=== PATIENT | male | born 1950 | race Caucasian/White ===

== ENCOUNTER → 2017-08-28 | Outpatient (CLI) | payer OTHER | LOC: FIMAGING 09:22 | PROVIDERS: ATTEND Orthopaedic Surgery | DX: M17.11 Unilateral primary osteoarthritis, right knee (principal) ==

== ENCOUNTER 2017-09-16 08:38 | Inpatient (IN) | payer OTHER ==
[~2017-09-16 08:38] MED LIST: ROPIVACAINE 0.2% 80 MG, EPINEPHrine 0.2 MG, KETOROLAC TROMETHAMINE 30 MG in BAG 0 ML IU ONE; TRANEXAMIC ACID 3,000 MG in NS 50 ML IRR ONE; TRANEXAMIC ACID 3,000 MG/50 ML BAG IRR ONE; VANCOMYCIN 1 GM VIAL ONE
[2017-09-16] MEDS ORDERED: FAMOTIDINE 20 MG TAB PO ONE (09:02)
[2017-09-16] MEDS ORDERED: ceFAZolin 2 GM/DEXTROSE 100 ML IV ONE (09:02)
[2017-09-16] MEDS ORDERED: ACETAMINOPHEN 325 MG TAB PO ONE (09:02)
[2017-09-16] MEDS ORDERED: DEXAMETHASONE 4 MG/ML VIAL IVP ONE (09:02)
[2017-09-16] MEDS ORDERED: LIDOCAINE 1% 2 ML INJ ID PRN (09:14)
[2017-09-16] MEDS ORDERED: LR 1,000 ML IV ONE (09:14)
--- NOTE | 2017-09-16 09:27 | PDHPUP ---
History & Physical Update H&P update statement: This history and physical update is based on an assessment of the patient which was completed after admission or registration (within 24 hours), but prior to the surgery/procedure. H&P update: H&P reviewed & patient examined, no change in patient's condition since H&P completed
[2017-09-16] MEDS ORDERED: MIDAZOLAM 2 MG/2 ML VIAL ONE (11:12)
--- NOTE | 2017-09-16 11:12 | PDANEPAE ---
ANE History of Present Illness Knee OA ANE Past Medical History - Cardiovascular History Hx Hypertension: Yes Hx Arrhythmias: No Hx Chest Pain: No Hx Coronary Artery / Peripheral Vascular Disease: No Hx CHF / Valvular Disease: No Hx Palpitations: No Cardiovascular History Comment: well managed on Losartan - Pulmonary History Hx COPD: No Hx Asthma/Reactive Airway Disease: No Hx Recent Upper Respiratory Infection: No Hx Oxygen in Use at Home: No Hx Sleep Apnea: No Sleep Apnea Screening Result - Last Documented: Negative - Neurologic History Hx Cerebrovascular Accident: No Hx Seizures: No Hx Dementia: No - Endocrine History Hx Diabetes: No - Renal History Hx Renal Disorders: Yes Renal History Comment: BPH managed w/Rx - Liver History Hx Hepatic Disorders: No - Neurological & Psychiatric Hx Hx Neurological and Psychiatric Disorders: No - Cancer History Hx Cancer: No - Congenital Disorder History Hx Congenital Disorders: No - GI History Hx Gastrointestinal Disorders: No - Other Health History Other Health History: OA R knee. "bleeding issue" w/L total knee Dec 2016-Dr Gwen Odell F/U 5-50-[id number] was written. - Chronic Pain History Chronic Pain: No - Surgical History Prior Surgeries: L total knee Dec. tonsillectomy age 2 ANE Review of Systems Review of Systems: - Exercise capacity METS (RN): 4 METS ANE Patient History - Allergies Allergies/Adverse Reactions: No Known Allergies Allergy (Verified 08/14/17 15:48) - Home Medications Home medications: home medication list seen and reviewed Home Medications: Aspirin [Aspirin 81mg (*)] 81 mg PO DAILY 08/12/17 [Last Taken 08/30/17] C/E/Zn/Cu/OM3/DHA/EPA/LUT/ZEAX [Preservision Areds 2 Softgel] 1 each PO BID [Last Taken 08/30/17] Cyanocobalamin [Vitamin B12 (*)] 1,000 mcg PO DAILY 08/12/17 [Last Taken ] Finasteride [Proscar 5 MG (*)] 5 mg PO DAILY 08/12/17 [Last Taken 09/16/17 05:30 ] Herbals/Supplements -Info Only 1 ea PO DAILY 08/12/17 [Last Taken 08/30/17] Losartan Potassium [Cozaar 50 mg (*)] 50 mg PO BID 08/12/17 [Last Taken 05:30] Hensel-3 Fatty Acids [Fish Oil 1000 mg (*)] 1,000 mg PO BID 08/12/17 [Last Taken 08/30/17] Tamsulosin HCl [Flomax 0.4 MG (*)] 0.4 mg PO BID 08/12/17 [Last Taken 09/16/17 05:30] - NPO status NPO Since - Liquids (Date): 09/16/17 NPO Since - Liquids (Time): 06:00 NPO Since - Solids (Date): 09/15/17 NPO Since - Solids (Time): 19:30 - Anes Hx Anes Hx: no prior problems - Smoking Hx Smoking Status: Former smoker ANE Labs/Vital Signs - Vital Signs Blood Pressure: 148/89 Heart Rate: 68 Respiratory Rate: 16 O2 Sat (%): 96 Height: 180.34 cm Weight: 80.286 kg ANE Physical Exam - Airway Neck exam: FROM Mallampati Score: Class 2 Mouth exam: normal dental/mouth exam - Pulmonary Pulmonary: no respiratory distress - Cardiovascular Cardiovascular: regular rate and rhythym - ASA Status ASA Status: II ANE Anesthesia Plan Anesthesia Plan: MAC, spinal Regional Anesthesia: adductor canal FNB (Plan adductor in PACU)
[2017-09-16] MEDS ORDERED: PROPOFOL/EMULSION 500 MG/50 ML BOTTLE IV ONE ×2 (11:15→11:57)
[2017-09-16] MEDS ORDERED: ROPIVACAINE HCL 150 MG/30 ML INJ ONE (12:01)
[2017-09-16] MEDS: VANCOMYCIN 1 GM VIAL ONE ×2 (12:14→12:23)
[2017-09-16] MEDS ORDERED: NALOXONE HCL 0.4 MG/ML INJ IVP PRN (12:17)
[2017-09-16] MEDS ORDERED: ONDANSETRON 4 MG/2 ML VIAL IVP PRN ×2 (12:17→13:12)
[2017-09-16] MEDS ORDERED: fentaNYL 100 MCG/2 ML INJ IVP PRN (12:17)
[2017-09-16] MEDS ORDERED: HYDROmorphONE/DILAUDID 1 MG/ML INJ IVP PRN (12:17)
[2017-09-16] MEDS ORDERED: MIDAZOLAM 2 MG/2 ML VIAL IVP ONE (12:48)
--- NOTE | 2017-09-16 13:09 | POSTANESTH ---
Post Anesthetic Evaluation Cardiovascular Status: Normal, Stable Respiratory Status: Normal, Stable Level of Consciousness/Mental Status: Can Participate in Eval Pain Control: Adequate, Prn Tx Ordered Nausea/Vomiting Control: Adequate, Prn Tx Ordered Complications Possibly Related to Anesthesia: None Noted (Adductor canal done in PACU)
[2017-09-16] MEDS ORDERED: MAGNESIUM HYDROXIDE 30 ML UDCUP PO PRN (13:12)
[2017-09-16] MEDS ORDERED: CYCLOBENZAPRINE 10 MG TAB PO PRN (13:12)
[2017-09-16] MEDS ORDERED: PROMETHAZINE HCL 25 MG SUPPR PR PRN (13:12)
[2017-09-16] MEDS ORDERED: METOCLOPRAMIDE 10 MG/2 ML VIAL IVP PRN (13:12)
[2017-09-16] MEDS ORDERED: POLYETHYLENE GLYCOL 3350 17 GM PKT PO PRN (13:12)
[2017-09-16] MEDS ORDERED: LACTULOSE 20 GM/30 ML UDCUP PO PRN (13:12)
[2017-09-16] MEDS ORDERED: diphenhydrAMINE 25 MG CAP PO PRN (13:12)
[2017-09-16] MEDS ORDERED: BISACODYL 10 MG SUPP PR PRN (13:12)
[2017-09-16] MEDS ORDERED: oxyCODONE IR 5 MG TAB PO PRN (13:12)
[2017-09-16] MEDS ORDERED: TEMAZEPAM 15 MG CAP PO PRN (13:12)
[2017-09-16] MEDS ORDERED: ONDANSETRON DISINTEGRATING 4 MG TAB PO PRN (13:12)
[2017-09-16] MEDS ORDERED: PROMETHAZINE HCL 25 MG/ML INJ IVP PRN (13:12)
[2017-09-16] MEDS ORDERED: DIPHENOXYLATE/ATROPINE LOMOTIL 1 TAB PO PRN (13:12)
--- NOTE | 2017-09-16 13:12 | POSTOPPROG ---
Post Op Note Date of Operation: 09/16/17 Surgeon: Camille Farley Doctor Of Dental Surgery: juan carlos farley Anesthesiologist: dr. more Anesthesia: Spinal, Other (Specify) (adductor canal block) Pre-op Diagnosis: R knee OA Post-op Diagnosis: same Indication: right knee pain due to OA that failed conservative measures Procedure: R TKA robot assisted Findings: severe knee OA Inf/Abcess present in the surg proc area at time of surgery?: No EBL: 50-100
[2017-09-16] MEDS ORDERED: LR 1,000 ML IV SCH (13:30)
[2017-09-16] MEDS ORDERED: ceFAZolin 2 GM/DEXTROSE 100 ML IV SCH (14:00)
[2017-09-16] MEDS: ceFAZolin 2 GM in D5W 100 ML IV SCH (18:04)
[2017-09-16] MEDS: ACETAMINOPHEN 325 MG TAB PO SCH (18:05)
[2017-09-16 20:03] VITALS: O2SAT 95
[2017-09-16] MEDS: SENNOSIDES/DOCUSATE SODIUM TAB PO SCH (22:09)
[2017-09-16] MEDS: ASPIRIN 325 MG TAB PO SCH (22:10)
[2017-09-16] MEDS: FAMOTIDINE 20 MG TAB PO SCH (22:10)
[2017-09-16] MEDS: LOSARTAN POTASSIUM 50 MG TAB PO SCH (22:11)
[2017-09-16] MEDS: TAMSULOSIN HCL 0.4 MG CAP PO SCH (23:23)
[2017-09-17] MEDS: ceFAZolin 2 GM in D5W 100 ML IV SCH (00:39)
[2017-09-17] MEDS: ACETAMINOPHEN 325 MG TAB PO SCH ×2 (00:39→05:21)
[2017-09-17 05:41] LABS: HEMATOCRIT 34.8 % (40.0-51.0); HEMOGLOBIN 11.9 g/dL (13.7-17.5)
[2017-09-17 07:33] VITALS: BP 155/75; PULSE 70; RESP 16; TEMP 98.6
[2017-09-17] MEDS: ASPIRIN 325 MG TAB PO SCH (08:38)
[2017-09-17] MEDS: FAMOTIDINE 20 MG TAB PO SCH (08:38)
[2017-09-17] MEDS: LOSARTAN POTASSIUM 50 MG TAB PO SCH (08:39)
[2017-09-17] MEDS: SENNOSIDES/DOCUSATE SODIUM TAB PO SCH (08:40)
[2017-09-17] MEDS: TAMSULOSIN HCL 0.4 MG CAP PO SCH (08:40)
[2017-09-17] MEDS ORDERED: FINASTERIDE 5 MG TAB PO SCH (09:00)
--- NOTE | 2017-09-17 10:01 | SOAPPROG ---
SOAP Progress Note Assessment/Plan: Assessment: Patient is doing well POD 1 s/p R TKA Pain management: pain is well controlled on oral pain meds. VTE ppx: recommend aspirin daily for 3 weeks, cont JIMENEZ and SCDs Anemia: level is expected initially postop. Asymptomatic. Continue to monitor D/c planning: d/c to home today pending release from PT incision dressing drainage: mild, placed new dressing Plan: 09/17/17 09:59 Subjective: Omega is doing well today, denies SOB, chest pain and N/V. Objective: Vital Signs Temp Pulse Resp BP Pulse Ox 37.0 C 70 16 155/75 H 95 09/17/17 07:32 09/17/17 07:32 09/17/17 07:32 09/17/17 08:39 09/17/17 07:32 Laboratory Results 09/17/17 05:25 09/16/17 09/17/17 09/18/17 05:59 05:59 05:59 Intake Total 4965 Output Total 1130 Balance 3835 RLE; mild drainage from dressing ,NVI, +pf/df ICD10 Worksheet Patient Problems: Problems Problem Status Onset Primary localized osteoarthritis of right knee Acute
--- NOTE | 2017-09-17 11:22 | ASDISCHSUM ---
Discharge Information Plan Status:Home with No Needs Medically Cleared to Leave: Discharge Date:09/17/2017 10:47 AM CM D/C Disposition:Home, Routine, Self-Care ADT D/C Disposition:Home, Routine, Self-Care Projected Discharge Date:09/17/2017 10:47 AM Transportation at D/C: Discharge Delay Reason: Follow-Up Date:09/17/2017 10:47 AM Discharge Slot: Final Diagnosis: Placement Information Patient Contact Information Contact Name:ANTHONY Relationship: Address:[address] Work Phone: City:[place] Phone: [facility]/Zip Code:[place] [address] Email: Financial Information Financial Class: Primary Plan Desc:MEDICARE INPATIENT Primary Plan Number:[id number] Secondary Plan Desc:BOAZ Secondary Plan Number:[id number] Assessment Information Intervention Information
--- NOTE | 2017-09-17 17:23 | GOP ---
[f rep st] OPERATIVE REPORT DATE OF OPERATION: 09/16/2017 SURGEON: Honey Littlejohn MD TRUSS DESIGNER: LEILA Carrasco ANESTHESIA: Spinal. PREOPERATIVE DIAGNOSIS: Right knee osteoarthritis. POSTOPERATIVE DIAGNOSIS: Right knee osteoarthritis. PROCEDURE PERFORMED: Right total knee arthroplasty with computer navigation and robotic-assist. FINDINGS/PATHOLOGY: Severe tricompartmental osteoarthritis. ESTIMATED BLOOD LOSS: 30 cc. INDICATIONS: This is a 66-year-old male with severe and progressive pain and deformity of the right knee unresponsive to conservative care. The risks and benefits of surgical intervention were explained in detail. DESCRIPTION OF PROCEDURE: The patient was brought to the operative room and placed on the table in the supine position. Spinal anesthesia was induced without difficulty. A pneumatic tourniquet was applied about the right proximal thigh, and the leg was prepped and draped in a sterile fashion. The leg chew was applied. After exsanguination by elevation the tourniquet was inflated to 250 mm of mercury. Incision was made anterior medial from the tibial tuberosity to a point 2 cm proximal to the superior pole of the patella. Medial parapatellar arthrotomy was carried out from the superior pole of the patella and posteriorly in line with the fibers of the Type II VMO. The medial collateral ligament was elevated and the infrapatellar fat pad was resected. The patella was everted and the articular surface was excised. A 38 mm patellar button was placed. Attention was turned first to the distal aspect of the right femur. At 3 cm proximal to the medial rise of the femur, 2 percutaneous half pins were placed for fixation of the femoral array. In a similar fashion, 2 pins were placed anteromedial on the tibia for fixation of the tibial array. External land marking and registration of the hip center was performed without difficulty. Internal femoral and tibial registration was carried out without difficulty and the femoral and tibial checkpoints were placed and verified for accuracy. Attention was turned to the femur. The foot print for the size 5 femoral component was cut with the saw using the [employer] robotic system and verified for accuracy against the CT based plan. In a similar fashion, saw was used to cut the footprint for the size 6 tibial component using the [employer] system and verified for accuracy against the CT based plan. The tibial articular surface was excised without difficulty, followed by the intercondylar box cut. The knee was extended and the remnants of the medial and lateral meniscus were excised. The posterior capsule was injected with ropivacaine, epinephrine and Toradol. A size 6 MIS mini-keel tibial tray was positioned. Trial reduction was then carried out. There was excellent range of motion, alignment, and stability using the 9 mm polyethylene. All trials were then removed. The joint was thoroughly irrigated and carefully dried. Two packages of cement and 2 grams of vancomycin were mixed in the vacuum mixer and placed on the fixation surfaces of all surfaces of the components. The components were implanted and all excess cement was thoroughly removed. The permanent 9 mm polyethylene was placed without difficulty. The tourniquet was deflated and all bleeders were coagulated. The wound was thoroughly irrigated and closed using interrupted sutures of 2-0 Vicryl for the joint capsule. The subcu was closed with 3-0 Vicryl and the skin with 4-0 Monocryl. Dermabond and Steri-Strips were applied followed by a compressive dressing. The patient was then moved from the operating room to the recovery room in good condition, having tolerated the procedure well. /[id number]/MODL MTDD
--- NOTE | 2017-09-17 23:18 | GDS ---
[f rep st] DISCHARGE SUMMARY ADMISSION DIAGNOSIS: Right knee osteoarthritis. DISCHARGE DIAGNOSIS: Right knee osteoarthritis. PROCEDURE: Right total knee arthroplasty, robot assisted. VTE PROPHYLAXIS: Aspirin recommended 3 weeks daily. BRIEF DESCRIPTION OF HOSPITAL STAY: Patient was admitted for an elective joint arthroplasty. The pa tient tolerated the procedure well and has passed physical therapy. The patient was given appropriat e antibiotic prophylaxis and venous thromboembolism prophylaxis. The patient's pain was well control led on oral pain medication, patient was holding down food, and had urinated. Decision was made to d ischarge the patient. The patient was given post-operative prescriptions pre-operatively. PLAN: Please follow up as scheduled with Dr. Littlejohn at [facility] October 05 at 10:30 a.m. /[id number]/MODL
== END 2017-09-17 10:47 | disposition home or self-care (01) | DRG 470 ==
LOC: F3N 08:38
PROVIDERS: ADMIT Orthopaedic Surgery; ATTEND Orthopaedic Surgery
DX: M17.11 Unilateral primary osteoarthritis, right knee (principal); I10 Essential (primary) hypertension
CPT/HCPCS: 97116-GP; 97161-GP; 97165-GO; C1713; G8978-GP-CJ; G8979-GP-CI; G8980-GP-CI; G8987-GO-CI; G8988-GO-CI; G8989-GO-CI; J0171; J0690; J1100; J1885; J2250; J2704; J2795; J3370